=== PATIENT | female | born 1960 | race Caucasian/White ===

== ENCOUNTER 2017-01-10 | Outpatient (CLI) | payer OTHER | END 2017-01-10 16:00 | disposition critical access hospital (66) | CPT/HCPCS: A0425; A0427 ==

== ENCOUNTER 2017-01-10 16:35 | Emergency (ER) | payer OTHER | END 2017-01-10 19:15 | disposition home or self-care (01) | DX: R07.9 Chest pain, unspecified (principal); E03.9 Hypothyroidism, unspecified; M19.90 Unspecified osteoarthritis, unspecified site ==